=== PATIENT | male | born 1995 | race Caucasian/White ===

== ENCOUNTER → 2021-12-22 | Outpatient (CLI) | payer BC ==
--- NOTE | 2021-12-22 13:06 | CT ---
EXAMINATION TYPE: CT chest w con CT DLP: 859 mGycm, Automated exposure control for dose reduction was used. DATE OF EXAM: 12/22/2021 12:19 PM COMPARISON: None. 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 FINDINGS: LUNGS/ PLEURA: No pneumothorax, pleural effusion, focal consolidation. No suspicious pulmonary nodule s or masses. AIRWAY: Patent and unremarkable.. HEART: Size within normal limits. No pericardial effusion. MEDIASTINUM/HILUM: No pathologic adenopathy. VASCULATURE: No aortic aneurysm. MUSCULOSKELETAL: No acute osseous abnormalities . No suspicious osseous lesions. SOFT TISSUES/LYMPH NODES: Bilateral gynecomastia. No axillary adenopathy. LOWER NECK: No significant findings. UPPER ABDOMEN: Diffuse low-attenuation to the liver parenchyma. Left renal 3.4 cm cyst. IMPRESSION: 1. No evidence of metastatic disease. 2. Hepatic steatosis.
== END | disposition home or self-care (01) ==
LOC: RADCTMAIN 11:30
PROVIDERS: ATTEND Surgery Surgical Oncology
DX: C41.9 Malignant neoplasm of bone and articular cartilage, unspecified (principal); K76.0 Fatty (change of) liver, not elsewhere classified
CPT/HCPCS: 71260; Q9967